=== PATIENT | female | born 1950 | race Caucasian/White ===

== ENCOUNTER 2017-09-25 13:16 | Outpatient (CLI) | payer MEDICARE | END 2017-09-25 13:17 | disposition home or self-care (01) | LOC: BICULT 13:16 | PROVIDERS: ATTEND Family Medicine | DX: Z12.31 Encounter for screening mammogram for malignant neoplasm of breast (principal); E04.2 Nontoxic multinodular goiter; Z80.3 Family history of malignant neoplasm of breast | CPT/HCPCS: 76536; 77063; 77067 ==

== ENCOUNTER 2017-10-01 13:14 | Outpatient (CLI) | payer MEDICARE | END 2017-10-01 13:15 | disposition home or self-care (01) | LOC: BICMAMMO 13:14 | PROVIDERS: ATTEND Family Medicine | DX: N63.20 Unspecified lump in the left breast, unspecified quadrant (principal); R92.8 Other abnormal and inconclusive findings on diagnostic imaging of breast | CPT/HCPCS: 76642; 77065; G0279 ==

== ENCOUNTER 2018-10-27 10:42 | Outpatient (CLI) | payer MEDICARE ==
--- NOTE | 2018-10-27 11:26 | BD ---
DEXA BONE DENSITY STUDY: Date: 10/27/18 HISTORY: Postmenopausal. 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 POS: TPC
--- NOTE | 2018-10-27 11:32 | MMO ---
Bilateral MAMMO Bilat Screen [facility]DI+[facility]A. CLINICAL HISTORY: Patient is 67 years old and is seen for screening. The patient has the following family history of breast cancer: sister. The patient has no personal history of cancer. VIEWS: The views performed were: bilateral craniocaudal with tomosynthesis and bilateral mediolateral oblique with tomosynthesis. FILMS COMPARED: The present examination has been compared to prior imaging studies performed at [facility] on 09/25/2017 and 10/01/2017. MAMMOGRAM FINDINGS: There are scattered fibroglandular densities. There is an asymmetry seen in the CC view only seen in the outer region of the left breast. In the right breast, there are no suspicious masses, calcifications or areas of architectural distortion. IMPRESSION: ASYMMETRY IN THE LEFT BREAST REQUIRES ADDITIONAL EVALUATION. RECOMMEND DIAGNOSTIC MAMMOGRAM. ULTRASOUND MAY ALSO PROVE USEFUL AT RECALL. THE RESULTS OF THIS EXAM WERE SENT TO THE PATIENT. ACR BI-RADS Category 0 - Incomplete: Need additional imaging evaluation. [facility] will notify the patient of the need for additional imaging services. MAMMOGRAPHY NOTE: 1. A negative mammogram report should not delay a biopsy if a dominant of clinically suspicious mass is present. 2. Approximately 10% to 15% of breast cancers are not detected by mammography. 3. Adenosis and dense breasts may obscure an underlying neoplasm.
== END 2018-10-27 10:43 | disposition home or self-care (01) ==
LOC: BICMAMMO 10:42
PROVIDERS: ATTEND Physician Assistant
DX: Z12.31 Encounter for screening mammogram for malignant neoplasm of breast (principal); M81.0 Age-related osteoporosis without current pathological fracture; N64.89 Other specified disorders of breast; M85.88 Other specified disorders of bone density and structure, other site; Z80.3 Family history of malignant neoplasm of breast
CPT/HCPCS: 77063; 77067; 77080

== ENCOUNTER 2018-10-29 13:32 | Outpatient (CLI) | payer MEDICARE ==
--- NOTE | 2018-10-29 14:03 | MMO ---
Left Breast MAMMO Unilat Diag DDI LT+GINA. CLINICAL HISTORY: Patient is 68 years old and is seen for diagnostic exam. The patient has the following family history of breast cancer: sister. The patient has no personal history of cancer. VIEWS: The views performed were: left craniocaudal spot compression with tomosynthesis and left mediolateral with tomosynthesis. FILMS COMPARED: The present examination has been compared to prior imaging studies performed at [facility] on 09/25/2017, 10/01/2017, 10/27/2018 and 10/29/2018. MAMMOGRAM FINDINGS: There are scattered fibroglandular densities. The asymmetry seen at screening mammography does not persist at additional imaging, compatible with superimposed tissue. Sonography of this region demonstrates no concerning findings. There are no suspicious masses, suspicious calcifications, or new areas of architectural distortion. IMPRESSION: THERE IS NO MAMMOGRAPHIC EVIDENCE OF MALIGNANCY. A ROUTINE FOLLOW-UP MAMMOGRAM IN 1 YEAR IS RECOMMENDED. THE RESULTS OF THIS EXAM WERE SENT TO THE PATIENT. ACR BI-RADS Category 2 - Benign finding MAMMOGRAPHY NOTE: 1. A negative mammogram report should not delay a biopsy if a dominant of clinically suspicious mass is present. 2. Approximately 10% to 15% of breast cancers are not detected by mammography. 3. Adenosis and dense breasts may obscure an underlying neoplasm.
--- NOTE | 2018-10-29 14:47 | ULT ---
LIMITED LEFT BREAST ULTRASOUND: Date: 10/29/18 PROVIDED CLINICAL HISTORY: Abnormal screening mammogram. FINDINGS: Limited sonographic interrogation was performed in the left upper outer quadrant of the left breast f rom the 12 to 3 o'clock positions. The sonographic appearance of the breast parenchyma in these regio ns is normal. IMPRESSION: BI-RADS Category 2 - Benign findings. Return to annual screening mammography recommended. POS: OFF
== END 2018-10-29 13:33 | disposition home or self-care (01) ==
LOC: BICMAMMO 13:32
PROVIDERS: ATTEND Physician Assistant
DX: R92.2 Inconclusive mammogram (principal); Z80.3 Family history of malignant neoplasm of breast
CPT/HCPCS: 76642; 77065; G0279

== ENCOUNTER 2019-10-04 13:10 | Outpatient (CLI) | payer MEDICARE ==
--- NOTE | 2019-10-04 14:15 | ULT ---
Thyroid sonogram HISTORY: Multinodular goiter. COMPARISON: 09/25/2017. FINDINGS: On today's exam, each thyroid lobe has a very heterogeneous echotexture. The right thyroid lobe measures up to 3.9 cm. The oval hyperechoic well-circumscribed solid nodule at the interpolar level of the right thyroid lobe is 0.9 cm x 0.8 cm x 0.7 cm greatest diameters, stable. Calcified les ion at the inferior pole is also unchanged. Isthmus is 0.3 cm thick. On today's exam, the largest lesion at the superior pole of the left thyroid lobe is 2.0 cm x 1.3 cm x 1.2 cm greatest diameters. Smaller heterogeneous nodules throughout the remainder of the left thyroid lobe are also stable. IMPRESSION : Stable sonographic appearance of the multinodular thyroid goiter.
== END 2019-10-04 13:11 | disposition home or self-care (01) ==
LOC: SCSULT 13:10
PROVIDERS: ATTEND Family Medicine
DX: E04.2 Nontoxic multinodular goiter (principal)
CPT/HCPCS: 76536

== ENCOUNTER 2019-10-29 11:15 | Outpatient (CLI) | payer MEDICARE ==
--- NOTE | 2019-10-29 15:47 | MMO ---
Bilateral MAMMO Bilat Screen [facility]DI[facility]A. CLINICAL HISTORY: Patient is 69 years old and is seen for screening. The patient has the following family history of breast cancer: sister, at age 60. The patient has no personal history of cancer. VIEWS: The views performed were: bilateral craniocaudal with tomosynthesis and bilateral mediolateral oblique with tomosynthesis. FILMS COMPARED: The present examination has been compared to prior imaging studies performed at [facility] on 10/01/2017, 10/27/2018 and 10/29/2018. This study has been interpreted with the assistance of computer-aided detection. MAMMOGRAM FINDINGS: There are scattered fibroglandular densities. There is a stable asymmetry seen in the sub-areolar region of the left breast. There are no suspicious masses, suspicious calcifications, or new areas of architectural distortion. IMPRESSION: THERE IS NO MAMMOGRAPHIC EVIDENCE OF MALIGNANCY. A ROUTINE FOLLOW-UP MAMMOGRAM IN 1 YEAR IS RECOMMENDED. THE RESULTS OF THIS EXAM WERE SENT TO THE PATIENT. ACR BI-RADS Category 2 - Benign finding MAMMOGRAPHY NOTE: 1. A negative mammogram report should not delay a biopsy if a dominant of clinically suspicious mass is present. 2. Approximately 10% to 15% of breast cancers are not detected by mammography. 3. Adenosis and dense breasts may obscure an underlying neoplasm. Reported by: YARITZA GONGORA MD Electonically Signed: [id number]
== END 2019-10-29 11:16 | disposition home or self-care (01) ==
LOC: BICMAMMO 11:15
PROVIDERS: ATTEND Family Medicine
DX: Z12.31 Encounter for screening mammogram for malignant neoplasm of breast (principal); Z80.3 Family history of malignant neoplasm of breast
CPT/HCPCS: 77063; 77067

== ENCOUNTER 2020-08-22 16:45 | Outpatient (CLI) | payer MEDICARE | END 2020-08-22 16:46 | disposition home or self-care (01) | LOC: SCSRAD 16:45 | PROVIDERS: ATTEND Physician Assistant | DX: M54.2 Cervicalgia (principal); M54.6 Pain in thoracic spine; R07.81 Pleurodynia; M47.812 Spondylosis without myelopathy or radiculopathy, cervical region; M43.9 Deforming dorsopathy, unspecified | CPT/HCPCS: 72040; 72072 ==

== ENCOUNTER 2020-10-31 13:06 | Outpatient (CLI) | payer MEDICARE | END 2020-10-31 13:07 | disposition home or self-care (01) | LOC: BICMAMMO 13:06 | PROVIDERS: ATTEND Family Medicine | DX: Z12.31 Encounter for screening mammogram for malignant neoplasm of breast (principal); Z13.820 Encounter for screening for osteoporosis; Z78.0 Asymptomatic menopausal state; Z80.3 Family history of malignant neoplasm of breast; M81.0 Age-related osteoporosis without current pathological fracture | CPT/HCPCS: 77063; 77067; 77080 ==

== ENCOUNTER 2021-11-02 14:00 | Outpatient (CLI) | payer MEDICARE | END 2021-11-02 14:01 | disposition home or self-care (01) | LOC: BICMAMMO 14:00 | PROVIDERS: ATTEND Family Medicine | DX: Z12.31 Encounter for screening mammogram for malignant neoplasm of breast (principal); Z80.3 Family history of malignant neoplasm of breast | CPT/HCPCS: 77063; 77067 ==

== ENCOUNTER 2022-11-06 11:25 | Day surgery (SDC) | payer MEDICARE ==
[2022-11-06] MEDS ORDERED: diphenhydrAMINE 25 MG CAP PO SCH (11:45)
[2022-11-06] MEDS ORDERED: Acetaminophen 500 MG TAB PO SCH (11:45)
[2022-11-06] MEDS ORDERED: Acetaminophen 500 MG TAB ONE (13:34)
[2022-11-06] MEDS ORDERED: diphenhydrAMINE 25 MG CAP ONE (13:34)
[2022-11-06 16:49] VITALS: BP 142/67; TEMP 98
== END 2022-11-06 16:53 | disposition home or self-care (01) ==
LOC: ONC/OP 11:25
PROVIDERS: ATTEND Internal Medicine Hematology & Oncology
DX: D64.9 Anemia, unspecified (principal); D69.6 Thrombocytopenia, unspecified
CPT/HCPCS: 36430; 86850; 86900; 86901; 86920; P9016

== ENCOUNTER 2022-12-23 13:55 | Outpatient (CLI) | payer MEDICARE ==
[2022-12-23 15:10] LABS: #Eosinphils 0.1 10x3/uL (0.0-0.5); #Monocytes 0.5 10x3/uL (0.0-1.1); #Neutrophils 4.5 10x3/uL (1.5-8.4); %Basophils 0.6 % (0.0-2.0); %Eosinophils 2.1 % (0.0-6.0); %Lymphocytes 18.8 % (18.0-47.0); %Monocytes 7.8 % (0.0-10.0); %Neutrophils 70.4 % (40.0-75.0); Hematocrit 33.8 % (34.9-44.5); Hemoglobin 10.2 g/dL (12.0-15.5); Mean Corpuscular HGB CONC 30.2 g/dL (32.0-36.0); Mean Corpuscular Hemoglobin 25.2 pg (27.0-33.0); Mean Corpuscular Volume 83.5 fl (81.6-98.3); Mean Platelet Volume 9.6 fl (7.4-10.4); Platelet Count 367 10x3/uL (150-450); Red Blood Cell (RBC) Count 4.05 10x6/uL (3.90-5.03); White Blood Cell (WBC) Count 6.3 10x3/uL (3.5-10.5)
[2022-12-23 15:14] LABS: ALT (SGPT) 23 U/L (8-55); AST (SGOT) 24 U/L (5-34); Alkaline Phosphatase 83 U/L (40-110); Anion Gap 12 mmol/L (10-20); BUN (Urea Nitrogen) 16 mg/dL (9.8-20.1); Bilirubin, Direct 0.1 mg/dL (0.1-0.3); Bilirubin, Total 0.3 mg/dL (0.2-1.2); Calc. Creatinine Clearance 0 mL/min (70-130); Calcium 9.1 mg/dL (7.8-10.44); Carbon Dioxide 23 mmol/L (23-31); Chloride 109 mmol/L (98-107); Estimated GFR 75; Globulin 2.4 g/dL (2.4-3.5); Glucose 111 mg/dL (83-110); Potassium 3.9 mmol/L (3.5-5.1); Protein, Total 6.4 g/dL (5.8-8.1); Sodium 140 mmol/L (136-145)
[2022-12-23 15:20] LABS: Hypochromia SLIGHT = 6-15 cells (100X) (0-5/hpf)
[2022-12-23 15:21] LABS: Anisocytosis SLIGHT = 6-15 cells (100X) (0-5/hpf)
[2022-12-23 20:20] LABS: Hemoglobin A1c 4.6 % (4.0-6.0)
== END 2022-12-23 13:56 | disposition home or self-care (01) ==
LOC: LABBT 13:55
PROVIDERS: ATTEND Surgery
DX: Z01.818 Encounter for other preprocedural examination (principal); C18.9 Malignant neoplasm of colon, unspecified
CPT/HCPCS: 80053; 80076; 82378; 83036; 85025; 93005; 93010

== ENCOUNTER 2022-12-23 15:00 | Inpatient (IN) | payer MEDICARE ==
[2022-12-23 14:29] VITALS: BMI 21.8
[2022-12-25] MEDS ORDERED: Acetaminophen 500 MG TAB ONE (08:56)
[2022-12-25] MEDS ORDERED: Bupivacaine PF 0.5% 30 ML VIAL ONE (08:58)
[2022-12-25] MEDS ORDERED: Midazolam HCl 2 mg/2 ml Vial ONE (08:58)
[2022-12-25] MEDS ORDERED: fentaNYL 50 mcg/mL 1 mL Vial ONE (08:58)
[2022-12-25] MEDS ORDERED: Dexmedetomidine 200 MCG/2 ML VIAL ONE (09:00)
[2022-12-25] MEDS ORDERED: Scopolamine 1.5 mg/72 hour Patch ONE (09:22)
[2022-12-25] MEDS ORDERED: Ondansetron PF 4 MG/2 ML Vial ONE (09:22)
[2022-12-25] MEDS ORDERED: Bupivacaine 0.25% HCL 30 ML VIAL ONE (09:34)
[2022-12-25] MEDS ORDERED: EPINEPHrine 1 MG/ML AMP ONE (09:34)
[2022-12-25] MEDS ORDERED: Indocyanine Green 25 MG/10 ML VIAL ONE (09:39)
[2022-12-25] MEDS ORDERED: Bupivacaine HCl 0.5%/Epinephrine 1:200,000/PF 30 ml Vial ONE (09:40)
[2022-12-25] MEDS ORDERED: fentaNYL PF 100 MCG/2 ML SYRINGE ONE (09:42)
[2022-12-25] MEDS ORDERED: SUGAMMADEX SODIUM 200 MG/2 ML VIAL ONE (09:43)
[2022-12-25] MEDS ORDERED: Sodium Chloride 0.9% 100 ML ONE (09:57)
[2022-12-25] MEDS ORDERED: CEFAZOLIN 2 GM VIAL ONE (09:57)
[2022-12-25] MEDS ORDERED: cefOXitin 2 GM VIAL ONE ×2 (09:58→11:59)
[2022-12-25] MEDS ORDERED: PROPOFOL 200 MG/20 ML VIAL ONE (10:10)
[2022-12-25] MEDS ORDERED: Lidocaine 1% PF 5 ML VIAL ONE (10:10)
[2022-12-25] MEDS ORDERED: Dexamethasone 20 MG/5 ML VIAL ONE (10:10)
[2022-12-25] MEDS ORDERED: ePHEDrine Sulfate 50 MG/10 ML VIAL ONE (10:10)
[2022-12-25] MEDS ORDERED: Rocuronium Bromide 10 MG/ML (10ML VIAL) ONE (10:10)
[2022-12-25] MEDS ORDERED: PHENYLEPHRINE-NS 100 MCG/ML 10 ML SYRINGE ONE (10:10)
[2022-12-25] MEDS ORDERED: Ipratropium/Albuterol 3 ML NEB NEB PRN (12:56)
[2022-12-25] MEDS ORDERED: Morphine 2 MG/ML VIAL SLOW IVP PRN (12:56)
[2022-12-25] MEDS ORDERED: hydrALAZINE 20 MG/ML VIAL SLOW IVP PRN (12:56)
[2022-12-25] MEDS ORDERED: Promethazine HCl 25 MG/ML VIAL IM PRN (12:56)
[2022-12-25] MEDS ORDERED: Ondansetron PF 4 MG/2 ML Vial IVP PRN (12:56)
[2022-12-25] MEDS ORDERED: Morphine 10 MG/ML VIAL SLOW IVP PRN (12:56)
[2022-12-25] MEDS: Ketorolac Tromethamine 30 MG/ML VIAL IVP SCH (16:08)
[2022-12-25] MEDS: Sodium Chloride 0.9% 1,000 ML IV SCH ×2 (16:08→22:23)
[2022-12-25] MEDS: Famotidine/PF 20 mg/2ml Vial SLOW IVP SCH (22:22)
[2022-12-25] MEDS: Famotidine 20 MG TAB PO SCH (22:22)
[2022-12-25] MEDS: cefOXitin 2 GM in Sodium Chloride 0.9% 100 ML IVPB SCH (22:22)
[2022-12-25] MEDS: Morphine 4 MG/ML VIAL SLOW IVP PRN (22:33)
[2022-12-26] MEDS: Ketorolac Tromethamine 30 MG/ML VIAL IVP SCH ×5 (01:11→23:30)
[2022-12-26] MEDS: cefOXitin 2 GM in Sodium Chloride 0.9% 100 ML IVPB SCH (04:24)
[2022-12-26 06:11] LABS: #Monocytes 0.8 thou/uL (0.11-0.59); #Neutrophils 6.7 thou/uL (1.40-6.50); %Basophils 0.2 % (0.0-1.0); %Lymphocytes 11.8 % (21.0-51.0); %Monocytes 8.8 % (0.0-10.0); %Neutrophils 78.8 % (42.0-75.0); Hematocrit 31.2 % (36.0-47.0); Hemoglobin 9.1 g/dL (12.0-16.0); Mean Corpuscular Hemoglobin 25.3 pg (27.0-31.0); Mean Corpuscular Volume 86.7 fl (78.0-98.0); Mean Platelet Volume 10.1 fL (7.4-10.4); Platelet Count 341 10x3/uL (130-400); White Blood Cell (WBC) Count 8.5 10x3/uL (4.8-10.8)
[2022-12-26 06:13] LABS: Mean Corpuscular HGB CONC 29.2 g/dL (32.0-36.0)
[2022-12-26 06:29] LABS: Anion Gap 11 mmol/L (10-20); BUN (Urea Nitrogen) 9 mg/dL (9.8-20.1); Calc. Creatinine Clearance 40 mL/min (70-130); Calcium 8.3 mg/dL (7.8-10.44); Carbon Dioxide 20 mmol/L (23-31); Chloride 110 mmol/L (98-107); Estimated GFR 52; Glucose 107 mg/dL (83-110); Potassium 3.9 mmol/L (3.5-5.1); Sodium 137 mmol/L (136-145)
[2022-12-26] MEDS: Sodium Chloride 0.9% 1,000 ML IV SCH ×3 (06:49→23:00)
[2022-12-26] MEDS: Famotidine 20 MG TAB PO SCH (09:41)
[2022-12-26] MEDS: Famotidine/PF 20 mg/2ml Vial SLOW IVP SCH (09:41)
[2022-12-26] MEDS: Morphine 4 MG/ML VIAL SLOW IVP PRN (21:48)
[2022-12-27] MEDS: Ketorolac Tromethamine 30 MG/ML VIAL IVP SCH ×2 (05:10→12:36)
[2022-12-27] MEDS: Sodium Chloride 0.9% 1,000 ML IV SCH (05:14)
[2022-12-27 08:34] VITALS: TEMP 98.7
[2022-12-27] MEDS ORDERED: Famotidine 20 MG TAB PO SCH (09:00)
[2022-12-27] MEDS ORDERED: Famotidine/PF 20 mg/2ml Vial SLOW IVP SCH (09:00)
[2022-12-27 12:23] VITALS: BP 135/63
== END 2022-12-27 12:50 | disposition home or self-care (01) | DRG 331 ==
LOC: SURG A 12-25 07:07 → SURG B 12-25 15:40
PROVIDERS: ADMIT Surgery; ATTEND Surgery
PROC: 0DTF4ZZ Resection of Right Large Intestine, Percutaneous Endoscopic Approach (ICD-10-PCS; principal; 2022-12-25)
PROC: 8E0W4CZ Robotic Assisted Procedure of Trunk Region, Percutaneous Endoscopic Approach (ICD-10-PCS; 2022-12-25)
DX: C18.0 Malignant neoplasm of cecum (principal); K66.0 Peritoneal adhesions (postprocedural) (postinfection); F41.9 Anxiety disorder, unspecified; N18.31 Chronic kidney disease, stage 3a; I12.9 Hypertensive chronic kidney disease with stage 1 through stage 4 chronic kidney disease, or unspecified chronic kidney disease; Z98.890 Other specified postprocedural states
CPT/HCPCS: 36415; 36416; 80048; 80053; 80076; 82378; 83036; 85025; 88309; 93005; J0171; J0694; J1100; J1650; J1885; J2250; J2270; J2272; J2405; J2704; J3010; J3490; J7050; S0020; S0028

== ENCOUNTER → 2023-10-22 | Day surgery (SDC) | payer MEDICARE ==
[~2023-10-22] MED LIST: Lidocaine 1% PF 5 ML VIAL ONE; Sodium Bicarbonate 2.5 MEQ/5 ML SDV ONE
== END ==
LOC: ULT 12:37
PROVIDERS: ATTEND Family Medicine
DX: E04.1 Nontoxic single thyroid nodule (principal)
CPT/HCPCS: 76536

== ENCOUNTER 2025-01-06 09:12 | Outpatient (CLI) | payer MEDICARE ==
[2025-01-06 10:37] LABS: Estimated GFR - POC 76.0
== END 2025-01-06 09:13 | disposition home or self-care (01) ==
LOC: CT 09:12
PROVIDERS: ATTEND Internal Medicine Hematology & Oncology
DX: C18.2 Malignant neoplasm of ascending colon (principal); D50.0 Iron deficiency anemia secondary to blood loss (chronic)
CPT/HCPCS: 36415; 71260; 74177; 82565